=== PATIENT | female | born 1990 | race Caucasian/White ===

== ENCOUNTER 2022-10-29 05:48 | Day surgery (SDC) | payer MEDICAID ==
[2022-10-29] MEDS ORDERED: Acetaminophen 500 MG Tab PO ONE (06:15)
[2022-10-29] MEDS ORDERED: Indocyanine Green 25 MG SDV INJECT ONE (06:30)
[2022-10-29] MEDS: Sodium Chloride 0.9% 1,000 ML IV SCH ×2 (06:32→16:27)
[2022-10-29] MEDS ORDERED: Bupivacaine 0.5%/EPINEPHrine 1:200,000 50 ML MDV ONE (06:35)
[2022-10-29] MEDS ORDERED: fentaNYL 250 MCG/5 ML SDV ONE (06:59)
[2022-10-29 07:02] LABS: HEMOGLOBIN 12.5 g/dL (11.2-15.5); MEAN CORPUSCULAR HEMOGLOBIN 27.1 pg (31.6-35.5); MEAN CORPUSCULAR HGB CONC 32.1 g/dL (31.6-35.5); MEAN CORPUSCULAR VOLUME 84.4 fL (81.4-99.0); RED BLOOD CELL COUNT 4.62 M/uL (3.77-5.24); WHITE BLOOD CELL COUNT,WBC 4.9 K/uL (3.2-11.0)
[2022-10-29 07:23] LABS: A/G RATIO 0.8 (1.2-2.2); ALANINE AMINOTRANSFERASE,ALT 13 U/L (12-78); ALBUMIN 3.1 g/dL (3.4-5.0); ALKALINE PHOSPHATASE 109 U/L (46-116); ASPARTATE AMNIOTRANSFERASE,AST 14 U/L (15-37); BILIRUBIN TOTAL 0.2 mg/dL (0.2-1.0); BLOOD UREA NITROGEN,BUN 13 mg/dL (7-18); CALCIUM 8.7 mg/dL (8.5-10.1); CARBON DIOXIDE,CO2 27 mmol/L (21-32); CHLORIDE,CL 103 mmol/L (100-108); CREATININE 1.1 mg/dL (0.6-1.0); ESTIMATED GFR 68 mL/min (>60); GLUCOSE RANDOM 85 mg/dL (74-106); POTASSIUM,K 3.7 mmol/L (3.6-5.2); PROTEIN TOTAL,TP 7.2 g/dL (6.4-8.2); SODIUM,NA 136 mmol/L (140-148)
[2022-10-29 07:25] LABS: ANION GAP 9.7 mmol/L (5.0-14.0)
[2022-10-29] MEDS ORDERED: cefTRIAXone 2 GM in Sodium Chloride 0.9% 50 ML IV ONE (07:30)
[2022-10-29] MEDS ORDERED: metroNIDAZOLE/Normal Saline 500 MG in Premix Bag 1 BAG IV ONE (07:30)
[2022-10-29] MEDS ORDERED: Propofol 200 MG/20 ML SDV ONE (08:03)
[2022-10-29] MEDS ORDERED: Neostigmine Methylsulfate 1 MG/ML 5 ML Syringe ONE (08:03)
[2022-10-29] MEDS ORDERED: Ondansetron 4 MG/2 ML SDV ONE (08:03)
[2022-10-29] MEDS ORDERED: Dexamethasone 4 MG/ML SDV ONE (08:03)
[2022-10-29] MEDS ORDERED: Glycopyrrolate 0.2 MG/ML 5 ML MDV ONE (08:03)
[2022-10-29] MEDS ORDERED: Rocuronium 50 MG/5 ML Vial ONE (08:03)
[2022-10-29] MEDS ORDERED: Succinylcholine 200 MG/10 ML MDV ONE (08:03)
[2022-10-29] MEDS ORDERED: fentaNYL 100 MCG/2 ML SDV ONE (08:06)
[2022-10-29] MEDS ORDERED: Ketorolac 30 MG/ML SDV ONE (08:19)
[2022-10-29] MEDS ORDERED: Lactated Ringers 1,000 ML ONE (08:56)
[2022-10-29] MEDS ORDERED: oxyCODONE 5 MG Tab PO PRN (09:30)
[2022-10-29] MEDS: Cyclobenzaprine 10 MG Tab PO SCH ×2 (13:30→20:11)
[2022-10-29] MEDS: Acetaminophen 500 MG Tab PO SCH ×2 (13:31→20:11)
[2022-10-29] MEDS ORDERED: Amitriptyline 25 MG Tab PO SCH (21:00)
[2022-10-30] MEDS: Acetaminophen 500 MG Tab PO SCH ×2 (02:12→08:19)
[2022-10-30] MEDS: Sodium Chloride 0.9% 1,000 ML IV SCH (02:12)
[2022-10-30 05:49] LABS: HEMATOCRIT 36.1 % (34.3-46.0); HEMOGLOBIN 11.2 g/dL (11.2-15.5); MEAN CORPUSCULAR HEMOGLOBIN 26.7 pg (31.6-35.5); MEAN CORPUSCULAR VOLUME 86.2 fL (81.4-99.0); RED BLOOD CELL COUNT 4.19 M/uL (3.77-5.24); WHITE BLOOD CELL COUNT,WBC 6.6 K/uL (3.2-11.0)
[2022-10-30 06:13] LABS: A/G RATIO 0.7 (1.2-2.2); ALANINE AMINOTRANSFERASE,ALT 18 U/L (12-78); ALBUMIN 2.6 g/dL (3.4-5.0); ALKALINE PHOSPHATASE 95 U/L (46-116); ANION GAP 8.6 mmol/L (5.0-14.0); ASPARTATE AMNIOTRANSFERASE,AST 23 U/L (15-37); BILIRUBIN TOTAL 0.2 mg/dL (0.2-1.0); BLOOD UREA NITROGEN,BUN 12 mg/dL (7-18); CARBON DIOXIDE,CO2 26 mmol/L (21-32); CHLORIDE,CL 106 mmol/L (100-108); EST CRCL DRUG DOSING (CG) 74.91 mL/min; ESTIMATED GFR 76 mL/min (>60); GLUCOSE RANDOM 92 mg/dL (74-106); POTASSIUM,K 3.6 mmol/L (3.6-5.2); PROTEIN TOTAL,TP 6.2 g/dL (6.4-8.2); SODIUM,NA 137 mmol/L (140-148)
[2022-10-30 06:14] LABS: MAGNESIUM 1.8 mg/dL (1.8-2.4); PHOSPHORUS 2.9 mg/dL (2.5-4.9)
[2022-10-30] MEDS ORDERED: Levothyroxine 50 MCG Tab PO SCH ×2 (07:30→21:00)
[2022-10-30] MEDS: Cyclobenzaprine 10 MG Tab PO SCH (08:18)
[2022-10-30] MEDS ORDERED: buPROPion 150 MG Tab.ER PO SCH (09:00)
[2022-10-30] MEDS ORDERED: Venlafaxine 75 MG Cap.ER PO SCH (21:00)
== END 2022-10-30 11:32 | disposition home or self-care (01) ==
LOC: UNDOADMIN 05:48 → JP.SDSSCHI 05:48 → JP.SDS 05:48 → JP.SDSSCHI 09:28 → JP.MS 09:28 → EDSTATUS 10:30 → JP.SDS 10-30 11:32 → UNDODISIN 10-30 11:32
PROVIDERS: ATTEND Student in an Organized Health Care Education/Training Program
DX: K80.10 Calculus of gallbladder with chronic cholecystitis without obstruction (principal); Z88.1 Allergy status to other antibiotic agents; Z88.8 Allergy status to other drugs, medicaments and biological substances; Z87.891 Personal history of nicotine dependence; Z98.890 Other specified postprocedural states; Z79.899 Other long term (current) drug therapy; Z79.891 Long term (current) use of opiate analgesic; Z79.890 Hormone replacement therapy
CPT/HCPCS: 36415; 47562; 80053; 81025; 83735; 84100; 85027; 88304; A9270; J0330; J0696; J1100; J1885; J2405; J2704; J2710; J3010; J3490; J7030; J7120